=== PATIENT | female | born 1955 | race American Indian/Alaskan Native ===

== ENCOUNTER 2020-09-06 09:46 | Outpatient (CLI) | payer MEDICAID ==
[2020-09-06 10:56] LABS: ABG Base Excess -0.8 mmol/L (-2.0-3.0); ABG HCO3 23.7 mmol/L (20.0-26.0); ABG Methemoglobin 0.5 % (0.0-1.5); ABG Oxygen Saturation 97.2 % (95.0-99.0); ABG PH 7.403 pH Units (7.350-7.450); ABG PO2 92.5 mm Hg (80.0-90.0)
[2020-09-06 10:57] LABS: Basophils % (Auto) 0.4 % (0.0-1.8); Eosinophils # (Auto) 0.2 K/mm3 (0.0-0.4); Eosinophils % (Auto) 2.7 % (0.0-4.3); Hematocrit 39.3 % (30.3-42.9); Hemoglobin 13.6 gm/dl (10.1-14.3); Lymphocytes # (Auto) 3.3 K/mm3 (1.2-5.4); Lymphocytes % (Auto) 46.5 % (13.4-35.0); Mean Corpuscular HGB Conc 35 % (30-34); Mean Corpuscular Volume 93 fl (79-97); Monocytes # (Auto) 0.5 K/mm3 (0.0-0.8); Monocytes % (Auto) 6.7 % (0.0-7.3); Platelet Count 240 K/mm3 (140-440); Red Blood Count 4.22 M/mm3 (3.65-5.03); Red Cell Distribution Width 13.4 % (13.2-15.2)
[2020-09-06 11:23] LABS: Alanine Aminotransferase 20 units/L (7-56); Albumin 4.1 g/dL (3.9-5); BUN/Creatinine Ratio 13; Blood Urea Nitrogen 13 mg/dL (7-17); Calcium 9.3 mg/dL (8.4-10.2); Chol/HDL Ratio 3.12 %; HDL Cholesterol 66 mg/dL (40-59); Hemolysis Index 4; LDL Cholesterol,Direct 143 mg/dL (50-130)
== END 2020-09-06 09:47 | disposition home or self-care (01) ==
LOC: LAB 09:46
PROVIDERS: ATTEND Internal Medicine
DX: J45.909 Unspecified asthma, uncomplicated (principal); I10 Essential (primary) hypertension; G62.9 Polyneuropathy, unspecified; Z77.120 Contact with and (suspected) exposure to mold (toxic)
CPT/HCPCS: 36415; 36600; 80053; 80061; 82785; 82803; 84436; 84443; 85025

== ENCOUNTER 2020-11-05 08:58 | Outpatient (CLI) | payer MEDICAID ==
--- NOTE | 2020-11-09 19:28 | Pulmonary Function Test ---
PULMONARY FUNCTION TESTS SPIROMETRY: FVC is 2.49 liters, which is 88% of the predicted. FEV1 is 1.98 liters, which is 90% of the predicted. FEV1/FVC ratio is 79. FLOW VOLUME LOOP: FEF 25-75% is 1.88 liters per second, which is 89% of the predicted. MVV is 82% of the predicted. LUNG VOLUMES: TLC 4.48, which is 83% of the predicted. The patient's DLCO is 47% of the predicted. IMPRESSION: Normal pulmonary function tests except decrease in DLCO. JOB# [id number] [facility]
== END 2020-11-05 08:59 | disposition home or self-care (01) ==
LOC: PF 08:58
PROVIDERS: ATTEND Internal Medicine
DX: J45.909 Unspecified asthma, uncomplicated (principal); G62.9 Polyneuropathy, unspecified; I10 Essential (primary) hypertension; Z77.120 Contact with and (suspected) exposure to mold (toxic)
CPT/HCPCS: 94010; 94726; 94729